=== PATIENT | female | born 1935 | race Caucasian/White ===

== ENCOUNTER 2017-06-15 14:30 | Emergency (ER) | payer MEDICARE ==
[2017-06-15] MEDS ORDERED: EPINEPHRINE TP ONE (15:04)
[2017-06-15] MEDS ORDERED: LIDOCAINE HCL TP ONE (15:04)
[2017-06-15] MEDS ORDERED: Silver Nitrate Applicator 10 EACH PACKET TP ONE (15:05)
[2017-06-15] MEDS ORDERED: LIDOCAINE HCL/PF 200 MG/5 ML AMPUL ONE (15:06)
--- OUTSIDE RECORDS SUMMARY | 2017-06-15 15:13 | XMS REPORT | Summary of Care ---
:1935 Author Organization [facility] Address [address] [place] [id number] Care Team Providers Name Role Phone Consuelo Ojeda Primary Care Physician Encounter Date(s): 02/11/17 - 02/11/[address] [id number] Discharge Disposition: 01 Discharged to Home or Self Care Attending Physician: TENA Mills Referring Physician: TENA Mills Vital Signs Most recent to oldest [Reference Range]: 1 Temperature Tympanic [36.6-38.1 DegC] 37.1 DegC (02/11/17 3:09 PM) Temperature C to F 98.8 (02/11/17 3:09 PM) Peripheral Pulse Rate [60-100 bpm] 76 bpm (02/11/17 3:09 PM) Respiratory Rate [12-20 br/min] 24 br/min *HI* (02/11/17 3:09 PM) SpO2 [90-100 %] 95 % (02/11/17 3:09 PM) SpO2 Location Right hand (02/11/17 3:09 PM) Blood Pressure [90-130/60-90 mmHg] 114/62mmHg (02/11/17 3:09 PM) Mean Arterial Pressure, Cuff 79 mmHg (02/11/17 3:09 PM) Most recent to oldest [Reference Range]: 1 Height/Length Measured 170.2 cm (02/11/17 3:09 PM) Weight Dosing 51.80 kg1 (02/11/17 3:12 PM) Weight Measured 51.8 kg (02/11/17 3:09 PM) BSA Measured 1.59 m2 (02/11/17 3:09 PM) Body Mass Index Measured 17.88 kg/m2 (02/11/17 3:09 PM) 1Result Comment: This result was because the dosing weight was either not entered or it is>30 days old. This result is based off: Weight Measured February 11, 2017 15:09:00 CDT by Ayana Gardiner [facility] Problem List Condition Effective Dates Status Health Status Informant Intestinal obstruction(Confirmed)1 10/13/12 Active Osteoporosis(Confirmed) 12/31/12 Active Polycythemia(Confirmed) Active Polycythemia vera(Confirmed) < 03/28/16 Resolved Splenomegaly(Confirmed) Active Vitamin D deficiency(Confirmed) Active 1small bowel Allergies, Adverse Reactions, Alerts No Known Allergies Medications alendronate 70 mg oral tablet 1 tab(s), Oral, q7day, # 4 tab(s), 11 Refill(s), Start Date: 04/24/16 15:20:00 CDT, Pharmacy: [facility] Start Date: 04/24/16 Stop Date: 09/18/16 Status: Completedalendronate 70 mg oral tablet 1 tab(s), Oral, q7day, # 4 tab(s), 0 Refill(s), Start Date: 04/24/16 15:20:00 CDT Start Date: 04/24/16 Stop Date: 04/24/16 Status: Discontinuedamoxicillin 500 mg oral tablet 1 tab(s), Oral, TID, # 30 tab(s), 1 Refill(s), Start Date: 11/10/14 11:06:00 ADMISSION LIAISON , Pharmacy: [facility] Start Date: 11/10/14 Stop Date: 12/12/14 Status: Completedaspirin 325 mg oral delayed release tablet 2 tab(s), Oral, Daily, 0 Refill(s), Start Date: 10/02/14 11:43:00 ADMISSION LIAISON Start Date: 10/02/14 Stop Date: 03/24/16 Status: Discontinuedaspirin 325 mg oral tablet 1 tab(s), Oral, Daily, # 30 tab(s), 0 Refill(s), Start Date: 07/29/16 9:32:00 CDT Start Date: 07/29/16 Status: OrderedBactrim DS 800 mg-160 mg oral tablet 1 tab(s), Oral, BID, X 7 days, # 14 tab(s), 0 Refill(s), Start Date: 06/30/16 14 :24:00 CDT, Pharmacy: [place] [id number] Start Date: 06/30/16 Stop Date: 07/07/16 Status: CompletedBactrim DS 800 mg-160 mg oral tablet 1 tab(s), Oral, BID, take with food drink plenty of fluids, X 10 days, # 20 tab(s), 0 Refill(s), Start Date: 11/17/16 14:42:00 ADMISSION LIAISON, Pharmacy: [place] [id number] Special Instructions: take with food drink plenty of fluids Start Date: 11/17/16 Stop Date: 11/27/16 Status: CompletedCalcium 600+D 1 tab(s), Oral, Daily, 0 Refill(s), Start Date: 10/02/14 11:44:00 ADMISSION LIAISON Start Date: 10/02/14 Stop Date: 09/18/16 Status: Completedcephalexin 500 mg oral capsule 1 cap(s), Oral, QID, # 40 cap(s), 0 Refill(s), Start Date: 10/24/14 16:05:00 ADMISSION LIAISON , Pharmacy: [place] [id number] Start Date: 10/24/14 Stop Date: 11/06/14 Status: Completedcephalexin 500 mg oral tablet 1 tab(s), Oral, QID, # 40 tab(s), 0 Refill(s), Start Date: 11/17/16 14:58:00 ADMISSION LIAISON , Pharmacy: [place] [id number] Start Date: 11/17/16 Stop Date: 02/11/17 Status: CompletedCipro 500 mg oral tablet 1 tab(s), Oral, q12hr, # 10 tab(s), 0 Refill(s), Start Date: 09/18/16 16:34:00 CDT, Pharmacy: [place] [id number] Start Date: 09/18/16 Stop Date: 09/26/16 Status: Completeddicyclomine 10 mg oral capsule 1 cap(s), Oral, QID, # 56 cap(s), 2 Refill(s), Start Date: 09/18/16 8:15:00 CDT , Pharmacy: [place] [id number] Start Date: 09/18/16 Stop Date: 10/30/16 Status: Ordereddoxycycline hyclate 100 mg oral tablet 1 tab(s), Oral, BID, # 14 tab(s), 1 Refill(s), Start Date: 11/06/14 11:46:00 ADMISSION LIAISON , Pharmacy: [place] [id number] Start Date: 11/06/14 Stop Date: 11/10/14 Status: Discontinuedfurosemide 20 mg oral tablet 1 tab(s), Oral, Daily, daily x 3 days, # 3 tab(s), 0 Refill(s), Start Date: 14:41:00 ADMISSION LIAISON, Pharmacy: [place] [id number] Special Instructions: daily x 3 days Start Date: 11/17/16 Stop Date: 02/11/17 Status: Completedhydroxyurea 500 mg oral capsule 1 cap(s), Oral, Every other day, 0 Refill(s), Start Date: 10/02/14 11:44:00 ADMISSION LIAISON Start Date: 10/02/14 Status: Orderedlidocaine 3% topical gel 1 mark, Topical, TID, PRN for pain, # 29 gm, 11 Refill(s), Start Date: 06/30/16 14:22:00 CDT, Pharmacy: [place] [id number] Start Date: 06/30/16 Stop Date: 07/29/16 Status: DiscontinuedmetroNIDAZOLE 500 mg oral tablet 1 tab(s), Oral, q6hr interval, # 20 tab(s), 0 Refill(s), Start Date: 09/18/16 16 :35:00 CDT, Pharmacy: [place] [id number] Start Date: 09/18/16 Stop Date: 11/17/16 Status: Completedmupirocin 2% topical ointment 1 mark, Topical, BID, # 30 gm, 1 Refill(s), Start Date: 11/17/16 14:47:00 ADMISSION LIAISON, Pharmacy: [place] [id number] Start Date: 11/17/16 Stop Date: 11/18/17 Status: OrderedPriLOSEC 20 mg oral delayed release capsule 1 cap(s), Oral, Daily, # 30 cap(s), 0 Refill(s), Start Date: 10/02/14 11:45:00 ADMISSION LIAISON Start Date: 10/02/14 Status: OrderedSilvadene 1% topical cream 1 mark, Topical, TID, # 50 gm, 2 Refill(s), Start Date: 07/29/16 9:54:00 CDT, Pharmacy: [id number] Start Date: 07/29/16 Stop Date: 09/18/16 Status: CompletedSilvadene 1% topical cream 1 mark, Topical, BID, # 25 gm, 1 Refill(s), Start Date: 11/06/14 11:44:00 ADMISSION LIAISON, Pharmacy: [facility] Start Date: 11/06/14 Stop Date: 11/13/14 Status: Completedsimvastatin 20 mg oral tablet 1 tab(s), Oral, HS, # 30 tab(s), 0 Refill(s), Start Date: 10/02/14 11:45:00 ADMISSION LIAISON Start Date: 10/02/14 Stop Date: 12/12/14 Status: CompletedVitamin D3 2000 intl units oral tablet tab(s), Oral, Daily, 0 Refill(s), Start Date: 10/02/14 11:46:00 ADMISSION LIAISON Start Date: 10/02/14 Stop Date: 09/18/16 Status: Completed Results No data available for this section Immunizations No data available for this section Procedures Procedure Date Related Diagnosis Body Site Laparoscopy - Abdomen1 Mastectomy of right breast [id number] Social History No data available for this section Assessment and Plan No data available for this section
--- NOTE | 2017-06-15 15:44 | ERNOTE ---
Upper Extremity HPI - General Extremities Pain Location: forearm: right Time Seen by Provider: 06/15/17 15:00 Source: patient Exam Limitations: no limitations - Immun/Allergies/Home Medications Immunizations: IMMUNIZATION HX Immunizations Up to Date No History of Influenza Vaccine No Hx Pneumococcal Vaccination No Allergies/Adverse Reactions: Allergies Allergy/AdvReac Type Severity Reaction Status Date / Time No Known Allergies Allergy Unverified 06/15/17 14:45 Home Medications: HOME MEDICATIONS Hydroxyurea [Hydrea] 500 mg PO DAILY 06/15/17 [Last Taken Unknown] - History of Present Illness Narrative: Patient has a spot of bleeding in her right forearm from an unknown cause. She is currently on hydroxyurea for her polycythemia vera and has noted that she has very thin skin so she says she bumped the forearm against the door last night while leaving the house. Patient denies any pain only the bleeding. Occurred: yesterday Location of Incident: home Severity: mild Method of Injury: Reports: other - bumped her forearm against the door Loss of Consciousness: Reports: no loss of consciousness Modifying Factors - (Improves): Reports: other - direct pressure Other Injuries: Reports: none Review of Systems - Review of Systems Constitutional: Present: See HPI EYE: Present: no symptoms reported ENT: Present: no symptoms reported Respiratory: Present: no symptoms reported Cardiology: Present: no symptoms reported Gastrointestinal/Abdominal: Present: no symptoms reported Genitourinary: Present: no symptoms reported Musculoskeletal: Present: no symptoms reported Skin: Present: no symptoms reported Neurological: Present: no symptoms reported Endocrine: Present: no symptoms reported Hematologic/Lymphatic: Present: no symptoms reported Psych: Present: no symptoms reported - Patient's Past Medical History Patient History - Medical: No pertinent hx, Other - polycythemia vera Patient History - Cardiac/Respiratory: No pertinent hx Patient History - Cancer: No Hx of Cancer Patient History - Surgical Procedures: No surgical history Patient History - Other: None LMP (females 10-50): Menopausal - Social History Living Situations: home Psych History: No pertinent hx Smoking Status: Never smoker Alcohol Use: none Drug Use: none - Immunizations Immunizations Up to Date: No Hx Pneumococcal Vaccination: No History of Influenza Vaccine: No Physical Exam - Physical Exam General Appearance: Present: wd/wn, alert, no apparent distress Eye Exam: Normal inspection: bilateral, PERRL: bilateral Ears, Nose, Throat: Present: normal ENT inspection, H, normal pharynx Neck: Present: normal inspection, nontender Respiratory: Present: no respiratory distress, normal breath sounds, no accessory muscle use, chest nontender, lungs clear Cardiovascular/Chest: Present: regular rate, rhythm, no murmur, normal peripheral pulses Gastrointestinal/Abdominal: Present: normal bowel sounds, nontender, nondistended, soft, no organomegaly Rectal Exam: Present: deferred Back Exam: Present: normal inspection, normal range of motion Extremity Exam: Present: normal inspection, non-tender, no edema, normal range of motion Neurological Exam: Present: alert, oriented, normal mood/affect Skin Exam: Present: normal color, warm/dry, other - bleeding on the dorsal surface of the right forearm from a skin tear laceration Lymphatic Exam: Present: no adenopathy ED Progress - Vital Signs Patient's Vital Signs:: I have reviewed the patient's vital signs. Vital Signs: Vital Signs 06/15/17 14:36 Temperature 37.0 C Pulse Rate 70 Respiratory 16 Rate Blood Pressure 130/75 O2 Sat by Pulse 96 Oximetry - Progress/Reassessment Chief Complaint: Upper Extremity Injury/Problem Progress:: Improved Plan - Plan Plan: Patient had silver nitrate applied to the incidental bleeding around the skin tear laceration, and we have applied Tegaderm which will help protect the area while it heals. She agrees to follow-up with her family physician as needed. Departure Clinical Impression: Skin tear of right forearm without complication Qualifiers: Encounter type: initial encounter Qualified Code(s): S51.811A - Laceration without foreign body of right forearm, initial encounter - Departure Condition: Good Instructions: Laceration Care, Adult, [id number]
[2017-06-15 16:26] VITALS: BP 114/80
== END 2017-06-15 16:25 | disposition home or self-care (01) ==
LOC: ER 14:30
DX: S51.811A Laceration without foreign body of right forearm, initial encounter (principal); W22.8XXA Striking against or struck by other objects, initial encounter; Y92.009 Unspecified place in unspecified non-institutional (private) residence as the place of occurrence of the external cause